=== PATIENT | female | born 1975 | race Caucasian/White ===

== ENCOUNTER 2024-09-27 17:08 | Inpatient (IN) | payer BC ==
[2024-09-27] MEDS: NITROGLYCERIN SL TABS 0.4 MG TAB SUBLINGUAL STA (18:33)
[2024-09-27] MEDS: ASPIRIN 81 MG PO STA (18:33)
[2024-09-27] MEDS: SODIUM CHLORIDE 0.9% 1,000 ML IV STA (18:34)
--- NOTE | 2024-09-27 18:36 | ED ---
General Adult HPI - General Chief complaint: Chest Pain Stated complaint: chest pain Time Seen by Provider: 09/27/24 18:01 Source: patient, RN notes reviewed Mode of arrival: ambulatory Limitations: no limitations - History of Present Illness Initial comments: 49-year-old female presents to the emergency department for evaluation of chest pain. Patient states that this started intermittently about a week ago but since last night at 8 PM and has been consistent. She notes that the pain is pressure in the left side of her chest. She notes radiation into her back. The pain in her back feels like a stabbing pain. She notes that it is worse with m ovement. She admits that the pain in her chest is better upon standing. She denies any recent fever, chills, cough, congestion. Denies any lower extremity edema. Denies shortness of breath. Denies any cardiac history. Does note a smoking history. She is not currently on any medications. - Related Data Home Medications Medication Instructions Recorded Confirmed No Known Home Medications 09/27/24 09/27/24 Allergies Allergy/AdvReac Type Severity Reaction Status Date / Time No Known Allergies Allergy Verified 09/27/24 18:16 Review of Systems ROS Statement: Those systems with pertinent positive or pertinent negative responses have been documented in the HPI. ROS Other: All systems not noted in ROS Statement are negative. Past Medical History Past Medical History: No Reported History History of Any Multi-Drug Resistant Organisms: None Reported Past Surgical History: Section Additional Past Surgical History / Comment(s): carpal tunnel, neck Past Psychological History: No Psychological Hx Reported Smoking Status: Current every day smoker Past Alcohol Use History: None Reported Past Drug Use History: None Reported General Exam Limitations: no limitations General appearance: alert, in no apparent distress Head exam: Present: atraumatic, normocephalic, normal inspection Eye exam: Present: normal appearance, PERRL, EOMI. Absent: scleral icterus, conjunctival injection, periorbital swelling ENT exam: Present: normal exam, mucous membranes moist Neck exam: Present: normal inspection. Absent: tenderness, meningismus, lymphadenopathy Respiratory exam: Present: normal lung sounds bilaterally. Absent: respiratory distress, wheezes, rales, rhonchi, stridor Cardiovascular Exam: Present: regular rate, normal rhythm, normal heart sounds. Absent: systolic murmur, diastolic murmur, rubs, gallop, clicks GI/Abdominal exam: Present: soft, normal bowel sounds. Absent: distended, tenderness, guarding, rebound, rigid Extremities exam: Present: normal inspection, full ROM, normal capillary refill. Absent: tenderness, pedal edema, joint swelling, calf tenderness Back exam: Present: tenderness Neurological exam: Present: alert, oriented X3, CN II-XII intact Psychiatric exam: Present: normal affect, normal mood Skin exam: Present: warm, dry, intact, normal color. Absent: rash Course Vital Signs 09/27/24 09/27/24 09/27/24 17:09 19:50 20:31 Temperature 97.8 F Pulse Rate 93 79 86 Respiratory 17 13 18 Rate Blood Pressure 130/94 127/97 113/81 O2 Sat by Pulse 99 97 98 Oximetry 09/27/24 09/27/24 09/27/24 21:46 22:19 22:50 Temperature Pulse Rate 56 L 70 60 Respiratory 20 18 18 Rate Blood Pressure 90/73 105/66 121/55 O2 Sat by Pulse 98 98 97 Oximetry 09/27/24 09/28/24 09/28/24 23:00 00:32 01:58 Temperature Pulse Rate 60 71 75 Respiratory 18 18 18 Rate Blood Pressure 100/60 120/71 113/60 O2 Sat by Pulse 98 97 97 Oximetry 09/28/24 09/28/24 09/28/24 03:45 05:00 09:00 Temperature 98 F 98.1 F Pulse Rate 50 L 52 L 53 L Respiratory 18 18 22 Rate Blood Pressure 96/55 99/56 93/53 O2 Sat by Pulse 99 96 95 Oximetry 09/28/24 13:48 Temperature Pulse Rate 54 L Respiratory 20 Rate Blood Pressure 104/48 O2 Sat by Pulse 95 Oximetry Medical Decision Making - Medical Decision Making Was pt. sent in by a medical professional or institution (, PA, FRAME FEEDER, urgent care, hospital, or long term...) When possible be specific @ -No Did you speak to anyone other than the patient for history (EMS, parent, family, police, friend...)? What history was obtained from this source @ -No Did you review nursing and triage notes (agree or disagree)? Why? @ -I reviewed and agree with nursing and triage notes Were old charts reviewed (outside hosp., previous admission, EMS record, old EKG, old radiological studies, urgent care reports/EKG's, long term records)? Report findings @ -No old charts were reviewed Differential Diagnosis (chest pain, altered mental status, abdominal pain women, abdominal pain men, vaginal bleeding, weakness, fever, dyspnea, syncope, headache, dizziness, GI bleed, back pain, seizure, CVA, palpatations, mental health, musculoskeletal)? @ -Differential Chest Pain: Stable Angina, Unstable Angina, STEMI, NSTEMI Aortic Dissection, Pneumothorax, Musculoskeletal, Esophageal Spasm GERD, Cholecystitis, Pancreatitis, Zoster, this is not meant to be an all-inclusive list. EKG interpreted by me (3pts min.). @ -EKG at 1717 shows sinus rhythm minimal ST depression in the anterior leads X-rays interpreted by me (1pt min.). @ -Chest x-ray shows no acute process CT interpreted by me (1pt min.). @ -CT of the thoracic aorta. No evidence of aortic dissection, no obvious aneurysm U/S interpreted by me (1pt. min.). @ -None done What testing was considered but not performed or refused? (CT, X-rays, U/S, labs)? Why? @ -None What meds were considered but not given or refused? Why? @ -None Did you discuss the management of the patient with other professionals (professionals i.e. , PA, FRAME FEEDER, lab, RT, psych nurse, social science instructor, shell mold bonding machine operator, teacher, special loan officer, showcase maker)? Give summary @ -Case was discussed with cardiology, Dr. Kumari who recommends heparin, beta-blockers, statin, trending troponins and cardiology will see the patient in the a.m. Case was discussed with Dr. Dhaliwal who is accepting of the admission Was smoking cessation discussed for >3mins.? @ -No Was critical care preformed (if so, how long)? @ -No Were there social determinants of health that impacted care today? How? (Homelessness, low income, unemployed, alcoholism, drug addiction, transportation, low edu. Level, literacy, decrease access to med. care, correction, rehab)? @ -No Was there de-escalation of care discussed even if they declined (Discuss DNR or withdrawal of care, Hospice)? DNR status @ -No What co-morbidities impacted this encounter? (DM, HTN, Smoking, COPD, CAD, Cancer, CVA, ARF, Chemo, Hep., AIDS, mental health diagnosis, sleep apnea, morbid obesity)? @ -Smoking Was patient admitted / discharged? Hospital course, mention meds given and route, prescriptions, significant lab abnormalities, going to OR and other pertinent info. @ -Admitted. Patient presented emergency department for evaluation of chest pain. Patient was administered aspirin and nitro. She does report some improvement in her symptoms with nitro. Laboratory studies obtained revealing leukocytosis at 12. Troponin was elevated at 0.71. Patient went for CT of the thoracic aorta which reveals no evidence of aortic dissection, no obvious aneurysm. Patient started on heparin drip. Case was discussed with cardiology who recommends heparin, beta-lois, statin, trending troponin. They will see the patient in the a.m. Case was discussed with Dr. Dhaliwal who is accepting of the admission. Case discussed with Dr. Palmer. Undiagnosed new problem with uncertain prognosis? @ -No Drug Therapy requiring intensive monitoring for toxicity (Heparin, Nitro, Insulin, Cardizem)? @ -Heparin Were any procedures done? @ -No Diagnosis/symptom? @ -NSTEMI Acute, or Chronic, or Acute on Chronic? @ -Notes acute Uncomplicated (without systemic symptoms) or Complicated (systemic symptoms)? @ -Complicated Side effects of treatment? @ -No Exacerbation, Progression, or Severe Exacerbation? @ -No Poses a threat to life or bodily function? How? (Chest pain, [place], NH, pneumonia, PE, COPD, DKA, ARF, appy, cholecystitis, CVA, Diverticulitis, Homicidal, Suicidal, threat to staff... and all critical care pts) @ -Yes NSTEMI - Lab Data Result diagrams: 09/28/24 02:47 09/27/24 18:26 Lab Results 09/27/24 09/27/24 09/27/24 Range/Units 18:26 18:26 18:26 WBC 12.5 H (3.8-10.6) k/uL RBC 4.56 (3.80-5.40) m/uL Hgb 14.5 (11.4-16.0) gm/dL Hct 43.5 (34.0-46.0) % MCV 95.4 (80.0-100.0) fL MCH 31.8 (25.0-35.0) pg MCHC 33.4 (31.0-37.0) g/dL RDW 12.5 (11.5-15.5) % Plt Count 290 (150-450) k/uL MPV 9.0 Neutrophils % 78 % Lymphocytes % 16 % Monocytes % 4 % Eosinophils % 1 % Basophils % 0 % Neutrophils # 9.8 H (1.3-7.7) k/uL Lymphocytes # 2.0 (1.0-4.8) k/uL Monocytes # 0.5 (0-1.0) k/uL Eosinophils # 0.2 (0-0.7) k/uL Basophils # 0.0 (0-0.2) k/uL PT 11.4 (10.0-12.5) sec INR 1.0 (<1.2) APTT 23.5 (22.0-30.0) sec D-Dimer (<0.60) mg/L FEU Sodium 137 (137-145) mmol/L Potassium 4.4 (3.5-5.1) mmol/L Chloride 104 (98-107) mmol/L Carbon Dioxide 21 L (22-30) mmol/L Anion Gap 12 mmol/L BUN 9 (7-17) mg/dL Creatinine 0.54 (0.52-1.04) mg/dL Est GFR (CKD-EPI)AfAm >90 (>60 ml/min/1.73 sqM) Est GFR (CKD-EPI)NonAf >90 (>60 ml/min/1.73 sqM) Glucose 107 H (74-99) mg/dL Calcium 9.6 (8.4-10.2) mg/dL Magnesium 1.9 (1.6-2.3) mg/dL Total Bilirubin 0.7 (0.2-1.3) mg/dL AST 29 (14-36) U/L ALT 15 (4-34) U/L Alkaline Phosphatase 113 (38-126) U/L Troponin I (0.000-0.034) ng/mL Total Protein 7.4 (6.3-8.2) g/dL Albumin 4.5 (3.5-5.0) g/dL 09/27/24 09/27/24 09/27/24 Range/Units 18:26 18:26 21:20 WBC (3.8-10.6) k/uL RBC (3.80-5.40) m/uL Hgb (11.4-16.0) gm/dL Hct (34.0-46.0) % MCV (80.0-100.0) fL MCH (25.0-35.0) pg MCHC (31.0-37.0) g/dL RDW (11.5-15.5) % Plt Count (150-450) k/uL MPV Neutrophils % % Lymphocytes % % Monocytes % % Eosinophils % % Basophils % % Neutrophils # (1.3-7.7) k/uL Lymphocytes # (1.0-4.8) k/uL Monocytes # (0-1.0) k/uL Eosinophils # (0-0.7) k/uL Basophils # (0-0.2) k/uL PT (10.0-12.5) sec INR (<1.2) APTT (22.0-30.0) sec D-Dimer 0.57 (<0.60) mg/L FEU Sodium (137-145) mmol/L Potassium (3.5-5.1) mmol/L Chloride (98-107) mmol/L Carbon Dioxide (22-30) mmol/L Anion Gap mmol/L BUN (7-17) mg/dL Creatinine (0.52-1.04) mg/dL Est GFR (CKD-EPI)AfAm (>60 ml/min/1.73 sqM) Est GFR (CKD-EPI)NonAf (>60 ml/min/1.73 sqM) Glucose (74-99) mg/dL Calcium (8.4-10.2) mg/dL Magnesium (1.6-2.3) mg/dL Total Bilirubin (0.2-1.3) mg/dL AST (14-36) U/L ALT (4-34) U/L Alkaline Phosphatase (38-126) U/L Troponin I 0.733 H* 1.610 H* (0.000-0.034) ng/mL Total Protein (6.3-8.2) g/dL Albumin (3.5-5.0) g/dL Disposition Clinical Impression: NSTEMI (non-ST elevated myocardial infarction) Disposition: ADMITTED IP TO THIS HOSP Condition: Stable Is patient prescribed a controlled substance at d/c from ED?: No
[2024-09-27 18:42] LABS: Basophils % (A) 0 %; Eosinophils # (A) 0.2 k/uL (0-0.7); Eosinophils % (A) 1 %; HCT 43.5 % (34.0-46.0); HGB 14.5 gm/dL (11.4-16.0); Lymphocytes % (A) 16 %; MCH 31.8 pg (25.0-35.0); MCHC 33.4 g/dL (31.0-37.0); MCV 95.4 fL (80.0-100.0); Monocytes # (A) 0.5 k/uL (0-1.0); Monocytes % (A) 4 %; Neutrophils # (A) 9.8 k/uL (1.3-7.7); Neutrophils % (A) 78 %; Platelet Count 290 k/uL (150-450); RBC 4.56 m/uL (3.80-5.40); RDW 12.5 % (11.5-15.5); WBC 12.5 k/uL (3.8-10.6)
--- NOTE | 2024-09-27 18:44 | XR ---
EXAMINATION TYPE: XR chest 2V DATE OF EXAM: 09/27/2024 6:38 PM COMPARISON: None. CLINICAL INDICATION: Female, 49 years old with history of Chest Pain, TECHNIQUE: Frontal and lateral views of the chest are obtained. FINDINGS: There is no focal air space opacity, pleural effusion, or pneumothorax seen. The cardiac silhouette size is within normal limits. The osseous structures are intact. IMPRESSION: No acute cardiopulmonary process. [facility], , 09/27/2024 6:41 PM
[2024-09-27 18:51] LABS: Partial Thromboplastin Time 23.5 sec (22.0-30.0); Prothrombin Time 11.4 sec (10.0-12.5)
[2024-09-27 19:28] LABS: ALT 15 U/L (4-34); African American GFR (CKD) >90 (>60 ml/min/1.73 sqM); Albumin 4.5 g/dL (3.5-5.0); Anion Gap 12 mmol/L; Blood Urea Nitrogen 9 mg/dL (7-17); Calcium 9.6 mg/dL (8.4-10.2); Carbon Dioxide 21 mmol/L (22-30); Chloride 104 mmol/L (98-107); Glucose 107 mg/dL (74-99); Non-African American GFR(CKD) >90 (>60 ml/min/1.73 sqM); Sodium 137 mmol/L (137-145); Total Bilirubin 0.7 mg/dL (0.2-1.3); Total Protein 7.4 g/dL (6.3-8.2)
[2024-09-27 19:34] LABS: AST 29 U/L (14-36); Alkaline Phosphatase 113 U/L (38-126); Magnesium 1.9 mg/dL (1.6-2.3); Potassium 4.4 mmol/L (3.5-5.1)
[2024-09-27] MEDS ORDERED: HEPARIN SODIUM 1,000 UN/ML (10ML VL) IV PRN (19:44)
[2024-09-27] MEDS ORDERED: HEPARIN SOD,PORK IN 0.45% NACL 25,000 UNIT in 0.45% NACL 1 250ML.BAG IV SCH (19:45)
[2024-09-27] MEDS: MORPHINE SULFATE 2 MG/ML SYRINGE IVP ONE ×2 (20:28→22:28)
--- NOTE | 2024-09-27 20:42 | CT ---
EXAMINATION TYPE: CT angio thor/abd pel aorta DATE OF EXAM: 09/27/2024 8:27 PM COMPARISON: None. CLINICAL INDICATION: Female, 49 years old with history of back pain, chest pain, Back and CP., TECHNIQUE: Axial imaging was performed with sagittal coronal reformats. 3D reconstruction performed o n a separate workstation. IV CONTRAST: with IV Contrast, patient injected with 100 ml mL of Isovue 370. (None if empty) CT DLP: 1667.9 mGycm, Automated exposure control for dose reduction was used. FINDINGS: CT Chest: THORACIC AORTA: There is no evidence for aneurysm. No dissection or mediastinal hematoma. Mild ath eromatous changes are seen. LUNGS: The lungs are clear and free of infiltrate or atelectasis. No pulmonary nodule or mass is det ected. No pleural effusion or CT evidence of interstitial lung disease. There are a few scattered em physematous bulla noted. MEDIASTINUM: The heart is not enlarged. No evidence for mediastinal mass or adenopathy. HILAR STRUCTURES: No evidence for mass. No hilar adenopathy is appreciated. OTHER: No significant abnormality. CONTRAST CT ABDOMEN AND PELVIS ABDOMENAL AORTA: No evidence for abdominal aortic aneurysm. No dissection. Iliac vessels are symmet cleo and patent. LIVER/GB- No significant abnormality is seen. PANCREAS- No significant abnormality is seen. SPLEEN- No significant abnormality is seen. ADRENALS- No significant abnormality is seen. KIDNEYS/BLADDER- No significant abnormality is seen. BOWEL- No Significant abnormality GENITAL ORGANS: No gross abnormality seen. LYMPH NODES- No greater than 1cm abdominal or pelvic lymph nodes areappreciated. OSSEOUS STRUCTURES- No significant abnormality is seen. OTHER- No significant abnormality is seen. IMPRESSION- No evidence for aortic aneurysm or dissection. No significant abnormality visualized to account for t he patient's symptoms. [facility], , 09/27/2024 8:40 PM
[2024-09-27] MEDS: HEPARIN SODIUM 1,000 UN/ML (10ML VL) IV ONE ×2 (20:54→21:52)
[2024-09-27] MEDS: ONDANSETRON 4 MG/2 ML VIAL IVP STA (21:48)
[2024-09-27] MEDS: ONDANSETRON 4 MG/2 ML VIAL IM STA (21:48)
[2024-09-27] MEDS: HEPARIN SOD,PORK IN 0.45% NACL 25,000 UNIT in 0.45% NACL 1 250ML.BAG IV SCH (21:52)
[2024-09-27] MEDS: ATORVASTATIN 80 MG TAB PO STA (22:30)
[2024-09-27] MEDS: SODIUM CHLORIDE 0.9% 1,000 ML IV ONE (22:44)
[2024-09-27] MEDS: NITROGLYCERIN OINT 1 INCH/GM PACKET TOPICAL STA (22:44)
[2024-09-27] MEDS ORDERED: NALOXONE 0.4 MG/ML 1 ML VIAL IV PRN (23:26)
[2024-09-27] MEDS: SODIUM CHLORIDE 0.9% 1,000 ML IV SCH (23:30)
[2024-09-27] MEDS: METOPROLOL TARTRATE 50 MG TAB PO STA (23:42)
[2024-09-28 03:41] LABS: HCT 37.8 % (34.0-46.0); HGB 12.5 gm/dL (11.4-16.0); MCH 32.2 pg (25.0-35.0); MCHC 33.1 g/dL (31.0-37.0); MCV 97.3 fL (80.0-100.0); RBC 3.89 m/uL (3.80-5.40); WBC 11.9 k/uL (3.8-10.6)
[2024-09-28 03:42] LABS: Basophils % (A) 0 %; Eosinophils # (A) 0.1 k/uL (0-0.7); Eosinophils % (A) 1 %; Lymphocytes # (A) 2.8 k/uL (1.0-4.8); Lymphocytes % (A) 23 %; Mean Platelet Volume 9.6; Monocytes # (A) 0.5 k/uL (0-1.0); Monocytes % (A) 4 %; Neutrophils # (A) 8.4 k/uL (1.3-7.7); Neutrophils % (A) 70 %; Platelet Count 268 k/uL (150-450); RDW 12.7 % (11.5-15.5)
[2024-09-28] MEDS: MORPHINE SULFATE 4 MG/ML SYRINGE IV PRN (03:47)
[2024-09-28] MEDS: HEPARIN SODIUM 1,000 UN/ML (10ML VL) IV PRN (03:49)
[2024-09-28 04:00] LABS: INR 1.1 (<1.2); Partial Thromboplastin Time 27.8 sec (22.0-30.0); Prothrombin Time 11.7 sec (10.0-12.5)
--- NOTE | 2024-09-28 07:38 | P.HPIM ---
History of Present Illness This is a pleasant 49 years old female with no significant past medical history presents because of chest pain of 5 days duration about 6-8/10 in severity felt like squeezing radiating to the shoulder blade and the back with what feels like stabbing And also radiating to the left jaw and feels her left arm is heavy. No shortness of breath no coughing She denies any specific urinary or GI symptoms. No headache or dizziness. No weakness or numbness. She smokes about 1 pack/day and she was counseled to quit and she offered vito uriel patch but she said no. She denies alcohol or illicit drugs Blood pressure is on the low side but also patient was started on metoprolol, currently 89/54 Patient is afebrile. Her troponin went up 0.7 up to 2.5 Rest of CBC, BMP LFT and INR were unremarkable except for mild leukocytosis 12.5 and 11.9 EKG showing sinus bradycardia at [address]-T changes Chest x-ray is negative for acute process CTA of the thoracic abdomen and pelvic aorta showing no aneurysm or dissection Patient currently on heparin drip and Normal Saline 100 mL/h Review of Systems Review of systems CONSTITUTIONAL: No fever, no malaise, no fatigue. HEENT: No recent visual problems or hearing problems. Denied any sore throat. CARDIOVASCULAR: No orthopnea, PND, no palpitations, no syncope. PULMONARY: No shortness of breath, no cough, no hemoptysis. GASTROINTESTINAL: No diarrhea, no nausea, no vomiting, no abdominal pain. Normoactive bowel sounds. NEUROLOGICAL: No headaches, no weakness, no numbness. HEMATOLOGICAL: Denies any bleeding or petechiae. GENITOURINARY: Denies any burning micturition, frequency, or urgency. MUSCULOSKELETAL/RHEUMATOLOGICAL: Denies any joint pain, swelling, or any muscle pain. ENDOCRINE: Denies any polyuria or polydipsia. Past Medical History Past Medical History: No Reported History History of Any Multi-Drug Resistant Organisms: None Reported Past Surgical History: Section Additional Past Surgical History / Comment(s): carpal tunnel, neck Past Psychological History: No Psychological Hx Reported Smoking Status: Current every day smoker Past Alcohol Use History: None Reported Past Drug Use History: None Reported Medications and Allergies Home Medications Medication Instructions Recorded Confirmed Type No Known Home Medications 09/27/24 09/27/24 History Allergies Allergy/AdvReac Type Severity Reaction Status Date / Time No Known Allergies Allergy Verified 09/27/24 18:16 Physical Exam Vitals: Vital Signs Temp Pulse Resp BP Pulse Ox 09/28/24 05:00 52 L 18 99/56 96 09/28/24 03:45 98 F 50 L 18 96/55 99 09/28/24 01:58 75 18 113/60 97 09/28/24 00:32 71 18 120/71 97 09/27/24 23:00 60 18 100/60 98 09/27/24 22:50 60 18 121/55 97 09/27/24 22:19 70 18 105/66 98 09/27/24 21:46 56 L 20 90/73 98 09/27/24 20:31 86 18 113/81 98 09/27/24 19:50 79 13 127/97 97 09/27/24 17:09 97.8 F 93 17 130/94 99 Intake and Output 09/27/24 09/28/24 09/28/24 22:59 06:59 14:59 Intake Total 56.421 Balance 56.421 Intake: Intake, IV Titration 56.421 Amount Heparin Sod,Pork in 0.45% 56.421 NaCl 25,000 unit In 0.45 % NaCl 1 250ml.bag @ 11.9 UNITS/KG/HR 9.986 mls/hr IV .Q24H [facility] Rx#: [id number] Other: Weight 83.915 kg GENERAL: The patient is alert and oriented x3, not in any acute distress. Well developed, well nourished. HEENT: Pupils are round and equally reacting to light. EOMI. No scleral icterus. No conjunctival pallor. Normocephalic, atraumatic. No pharyngeal erythema. No thyromegaly. CARDIOVASCULAR: S1 and S2 present. No murmurs, rubs, or gallops. PULMONARY: Chest is clear to auscultation, no wheezing , no crackles. ABDOMEN: Soft, nontender, nondistended, normoactive bowel sounds. No palpable organomegaly. MUSCULOSKELETAL: No joint swelling or deformity. EXTREMITIES: No cyanosis, clubbing, or pedal edema. NEUROLOGICAL: Gross neurological examination did not reveal any focal deficits. SKIN: No rashes. no petechiae. Results CBC & Chem 7: 09/28/24 02:47 09/27/24 18:26 Labs: Abnormal Lab Results - Last 24 Hours (Table) 09/27/24 09/27/24 09/27/24 Range/Units 18:26 18:26 18:26 WBC 12.5 H (3.8-10.6) k/uL Neutrophils # 9.8 H (1.3-7.7) k/uL APTT (22.0-30.0) sec Carbon Dioxide 21 L (22-30) mmol/L Glucose 107 H (74-99) mg/dL Troponin I 0.733 H* (0.000-0.034) ng/mL 09/27/24 09/28/24 09/28/24 Range/Units 21:20 00:30 02:00 WBC (3.8-10.6) k/uL Neutrophils # (1.3-7.7) k/uL APTT 31.8 H (22.0-30.0) sec Carbon Dioxide (22-30) mmol/L Glucose (74-99) mg/dL Troponin I 1.610 H* 2.560 H* (0.000-0.034) ng/mL 09/28/24 Range/Units 02:47 WBC 11.9 H (3.8-10.6) k/uL Neutrophils # 8.4 H (1.3-7.7) k/uL APTT (22.0-30.0) sec Carbon Dioxide (22-30) mmol/L Glucose (74-99) mg/dL Troponin I (0.000-0.034) ng/mL Assessment and Plan Assessment: Non-STEMI Nicotine dependence Mild leukocytosis secondary to above Plan: Continue with heparin drip Continue with aspirin Monitor blood pressure patient was started on metoprolol. Continue with normal saline Cardiology team consult Further recommendation based on the clinical course DVT prophylaxis: Heparin GI prophylaxis: Pepcid Prognosis is guarded
[2024-09-28] MEDS: METOPROLOL TARTRATE 25 MG TAB PO SCH (09:07)
[2024-09-28] MEDS: FAMOTIDINE 20 MG/2 ML VIAL IV SCH (09:07)
--- NOTE | 2024-09-28 12:24 | P.CRDCN ---
History of Present Illness Consult date: 09/28/24 History of present illness: The patient is a very pleasant 49-year-old female patient with no significant past medical history but significant history of smoking and significant family history of cardiovascular disease presented to the hospital complaining of chest discomfort which she has been experiencing intermittent episode of chest discomfort for the last several weeks. Lately the discomfort becomes more often and more intense which she described as a pressure in the middle of the chest with radiation to the neck with no associated symptoms of shortness of breath or sweating or dizziness or lightness or presyncope or syncope further cardiac evaluation performed including an EKG showing sinus mechanism with T wave inversion inferiorly. Troponin came to be abnormal and concerning for acute coronary event. Currently she is chest pain-free on heparin. No history of CAD or heart failure or cardiac arrhythmia. Physical examination is remarkable for regular rhythm with a clear breathing sounds bilaterally and distant heart sounds and no edema was noted in the lower extremities Assessment Acute non-ST ovation myocardial infarction History of smoking Significant family history of cardiovascular disease Plan Continue heparin IV Add aspirin and statin and beta-lois Obtain an echocardiogram with Doppler Proceed with coronary angiogram Further recommendation to follow Past Medical History Past Medical History: No Reported History History of Any Multi-Drug Resistant Organisms: None Reported Past Surgical History: Section Additional Past Surgical History / Comment(s): carpal tunnel, neck Past Psychological History: No Psychological Hx Reported Smoking Status: Current every day smoker Past Alcohol Use History: None Reported Past Drug Use History: None Reported Medications and Allergies Home Medications Medication Instructions Recorded Confirmed Type No Known Home Medications 09/27/24 09/27/24 History Allergies Allergy/AdvReac Type Severity Reaction Status Date / Time No Known Allergies Allergy Verified 09/27/24 18:16 Physical Exam Vitals: Vital Signs Temp Pulse Resp BP Pulse Ox 09/28/24 09:00 98.1 F 53 L 22 93/53 95 09/28/24 05:00 52 L 18 99/56 96 09/28/24 03:45 98 F 50 L 18 96/55 99 09/28/24 01:58 75 18 113/60 97 09/28/24 00:32 71 18 120/71 97 09/27/24 23:00 60 18 100/60 98 09/27/24 22:50 60 18 121/55 97 09/27/24 22:19 70 18 105/66 98 09/27/24 21:46 56 L 20 90/73 98 09/27/24 20:31 86 18 113/81 98 09/27/24 19:50 79 13 127/97 97 09/27/24 17:09 97.8 F 93 17 130/94 99 Intake and Output 09/27/24 09/28/24 09/28/24 22:59 06:59 14:59 Intake Total 56.421 93.118 Balance 56.421 93.118 Intake: Intake, IV Titration 56.421 93.118 Amount Heparin Sod,Pork in 0.45% 56.421 93.118 NaCl 25,000 unit In 0.45 % NaCl 1 250ml.bag @ 11.9 UNITS/KG/HR 9.986 mls/hr IV .Q24H [facility] Rx#: [id number] Other: Weight 83.915 kg Results 09/28/24 02:47 09/27/24 18:26 Cardiac Enzymes 09/27/24 09/27/24 09/27/24 Range/Units 18:26 18:26 21:20 AST 29 (14-36) U/L Troponin I 0.733 H* 1.610 H* (0.000-0.034) ng/mL 09/28/24 Range/Units 00:30 AST (14-36) U/L Troponin I 2.560 H* (0.000-0.034) ng/mL Coagulation 09/27/24 09/28/24 09/28/24 Range/Units 18:26 02:00 02:47 PT 11.4 11.7 (10.0-12.5) sec APTT 23.5 31.8 H 27.8 (22.0-30.0) sec 09/28/24 Range/Units 09:57 PT (10.0-12.5) sec APTT 35.2 H (22.0-30.0) sec CBC 09/27/24 09/28/24 Range/Units 18:26 02:47 WBC 12.5 H 11.9 H (3.8-10.6) k/uL RBC 4.56 3.89 (3.80-5.40) m/uL Hgb 14.5 12.5 (11.4-16.0) gm/dL Hct 43.5 37.8 (34.0-46.0) % Plt Count 290 268 (150-450) k/uL Comprehensive Metabolic Panel 09/27/24 Range/Units 18:26 Sodium 137 (137-145) mmol/L Potassium 4.4 (3.5-5.1) mmol/L Chloride 104 (98-107) mmol/L Carbon Dioxide 21 L (22-30) mmol/L BUN 9 (7-17) mg/dL Creatinine 0.54 (0.52-1.04) mg/dL Glucose 107 H (74-99) mg/dL Calcium 9.6 (8.4-10.2) mg/dL AST 29 (14-36) U/L ALT 15 (4-34) U/L Alkaline Phosphatase 113 (38-126) U/L Total Protein 7.4 (6.3-8.2) g/dL Albumin 4.5 (3.5-5.0) g/dL Current Medications Generic Name Dose Route Start Last Admin Trade Name Freq PRN Reason Stop Dose Admin Famotidine 20 mg 09/28/24 09:00 09/28/24 09:07 Famotidine 20 Mg/2 Ml Vial IV 20 mg Q12HR BENNETT Administration Heparin Sodium (Porcine) 0 unit 09/27/24 21:07 09/28/24 11:28 Heparin Sodium 1,000 Un/Ml (10ml Vl) IV 2,098 unit PER PROTOCOL PRN Administration Low PTT Protocol Heparin Sodium/Sodium Chloride 250 mls @ 9.986 mls/hr 09/27/24 21:15 09/28/24 11:30 25,000 unit/ Sodium Chloride IV 15.9 units/kg/hr .Q24H BENNETT 13.342 mls/hr Titration Protocol 11.9 UNITS/KG/HR Sodium Chloride 1,000 mls @ 100 mls/hr 09/27/24 23:30 09/28/24 11:36 Saline 0.9% IV 100 mls/hr .Q10H BENNETT Administration Metoprolol Tartrate 25 mg 09/28/24 09:00 09/28/24 09:07 Metoprolol Tartrate 25 Mg Tab PO Not Given BID BENNETT Morphine Sulfate 4 mg 09/27/24 23:26 09/28/24 03:47 Morphine Sulfate 4 Mg/Ml Syringe IV 4 mg Q4HR PRN Administration Severe Pain (Scale 7 to 10) Naloxone HCl 0.2 mg 09/27/24 23:26 Naloxone 0.4 Mg/Ml 1 Ml Vial IV Q2M PRN Opioid Reversal Intake and Output 09/27/24 09/28/24 09/28/24 22:59 06:59 14:59 Intake Total 56.421 93.118 Balance 56.421 93.118 Intake: Intake, IV Titration 56.421 93.118 Amount Heparin Sod,Pork in 0.45% 56.421 93.118 NaCl 25,000 unit In 0.45 % NaCl 1 250ml.bag @ 11.9 UNITS/KG/HR 9.986 mls/hr IV .Q24H [facility] Rx#: [id number] Other: Weight 83.915 kg 09/28/24 02:47 09/27/24 18:26
[2024-09-28] MEDS ORDERED: ALPRAZolam 0.25 MG TAB PO PRN (12:37)
[2024-09-28] MEDS ORDERED: NITROGLYCERIN SL TABS 0.4 MG TAB SUBLINGUAL PRN (12:37)
[2024-09-28] MEDS ORDERED: ALPRAZolam 0.5 MG TAB PO PRN (12:37)
[2024-09-28] MEDS: IV FLUID CONTINUATION 1,000 ML IV ONE (14:00)
[2024-09-28] MEDS: LIDOCAINE 1% INJ 10MG/ML (20 ML MDV) SQ ONE (14:19)
[2024-09-28] MEDS: MIDAZOLAM 2 MG/2 ML VIAL IVP ONE (14:19)
[2024-09-28] MEDS: VERAPAMIL SYRINGE (5 MG/10 ML) INTRAARTER ONE (14:21)
[2024-09-28] MEDS: HEPARIN SODIUM 1,000 UN/ML (10ML VL) IVP ONE (14:30)
[2024-09-28] MEDS: PRASUGREL 10 MG TAB PO ONE (14:30)
[2024-09-28] MEDS: NITROGLYCERIN SL TABS 0.4 MG TAB SUBLINGUAL ONE (14:30)
[2024-09-28] MEDS: PHENYLEPHRINE-0.9% NACL SYG 1,000 MCG/10 ML SYRINGE IVP ONE (14:43)
[2024-09-28] MEDS: IOPAMIDOL-370 100ML BTL INJ ONE (14:44)
[2024-09-28] MEDS ORDERED: RX INFO: IV CONTRAST WAS GIVEN 1 EACH MISC MISCELLANE PRN (14:58)
[2024-09-28] MEDS ORDERED: ATROPINE SULFATE 0.1 MG/ML 10ML SYRINGE IV PRN (14:58)
[2024-09-28] MEDS ORDERED: ZOLPIDEM 5 MG TAB PO PRN (14:58)
[2024-09-28] MEDS ORDERED: MAG HYDROX/AL HYDROX/SIMETH 30 ML CUP PO PRN (14:58)
--- NOTE | 2024-09-28 18:11 | P.PCN ---
Date of Procedure: 09/28/24 Operative Findings: CARDIAC CATHETERIZATION AND PERCUTANEOUS CORONARY INTERVENTION PERFORMING PHYSICIAN: Gokul Terrell MD, [facility] PROCEDURE PERFORMED: 1. Selective right and left coronary angiogram 2. Successful stenting of distal RCA using 3.5 x 28 mm Xience LUIS M with an excellent angiographic results and reduction of stenosis from 100% to 0% 3. Adjunctive use of IVUS and aspiration thrombectomy 4. Ultrasound-guided access of the right radial artery INDICATION: Acute non-ST elevation myocardial infarction COMPLICATION: None APPROACH: Right radial art LEVEL OF SEDATION: Moderate with the sedation time off 28 minutes PROCEDURE DESCRIPTION: After obtaining informed consent the patient was brought to the cardiac Optometry Assistant with right radial artery was cannulated using micropuncture technique under ultrasound guidance a micropuncture wire passed easily then I placed a 6 [place] 11 cm sheath at the right radial artery and give the patient 2 mg of verapamil intra-arterial and 5000's of heparin intravenous with continuous ACT monitoring. Selective right and left coronary angiogram performed using JR4 and JL 3.5 catheters. After that I decided to intervene on the RCA. Anticoagulation continued using heparin with continuous ACT monitoring and also the patient was loaded with 60 of Effient. I did engage the RCA using JR4 guiding catheter. I did cross it using a run-through wire. The wire was advanced to the PDA of RCA. I did aspiration thrombectomy with faith of the flow in the RCA at the extraction of the red thrombus. After that I did IVUS which showed a diameter around 3.5 mm with a noncalcified vessel. I did direct stenting of the lesion using 3.5 x 28 mm Xience LUIS M where the stent was positioned under fluoroscopy guidance and deployed under fluoroscopy guidance. Final angiogram showed good angiographic results with DANIELLA-3 flow and the procedure was completed with no complication. SELECTIVE CORONARY ANGIOGRAM: The right coronary artery: Large caliber vessel and a dominant vessel and appears to be occluded acutely distal Left main: Is angiographically normal The left circumflex: Has mild disease with no evidence of high-grade stenosis and gives rise into an OM which appears to be normal The left anterior descending artery: Large caliber vessel with no evidence of high-grade stenosis and gives rise into a large diagonal branch which seems to be in having mild disease only CONCLUSION: 1. Occluded RCA distally. I did perform successful PCI of the RCA as described above 2. Mild disease involving the left coronary system POSTPROCEDURE MANAGEMENT: 1. Dual antiplatelet therapy using aspirin and Effient for 12 month 2. Aggressive cholesterol control 3. Follow-up with the patient
[2024-09-28] MEDS: SODIUM CHLORIDE 0.9% 1,000 ML in EMPTY BAG 1 BAG IV SCH (20:08)
[2024-09-29] MEDS ORDERED: HEPARIN SODIUM,PORCINE 10,000 UNIT in SODIUM CHLORIDE 0.9% 1,000 ML IRRIGATION PRN (07:00)
[2024-09-29] MEDS ORDERED: HEPARIN SODIUM,PORCINE (1 ML) 2,500 UNIT in SODIUM CHLORIDE 0.9% 250 ML IRRIGATION PRN (07:00)
--- NOTE | 2024-09-29 07:01 | P.PN ---
Subjective Progress Note Date: 09/29/24 The patient is a very pleasant 49-year-old female patient with no significant past medical history but significant history of smoking and significant family history of cardiovascular disease presented to the hospital complaining of chest discomfort which she has been experiencing intermittent episode of chest discomfort for the last several weeks. Lately the discomfort becomes more often and more intense which she described as a pressure in the middle of the chest with radiation to the neck with no associated symptoms of shortness of breath or sweating or dizziness or lightness or presyncope or syncope further cardiac evaluation performed including an EKG showing sinus mechanism with T wave inver ned inferiorly. Troponin came to be abnormal and concerning for acute coronary event. Currently she is chest pain-free on heparin. No history of CAD or heart failure or cardiac arrhythmia. Physical examination is remarkable for regular rhythm with a clear breathing sounds bilaterally and distant heart sounds and no edema was noted in the lower extremities September 29, 2024 The patient was seen and evaluated this morning which she is asymptomatic and she is stable beside soft blood pressure but the pressure remains above 98 systolic. The echo still pending. She is on dual antiplatelet therapy and intermediate intensity statin. The patient would like to go home. The physical examination overall appears to be unremarkable with regular rate and rhythm and soft systolic murmur and clear breathing sounds bilaterally and no edema was noted in the lower extremities Assessment Acute non-ST ovation myocardial infarction and status post PCI of the RCA History of smoking Significant family history of cardiovascular disease Plan Continue the current medical regimen including dual antiplatelet therapy Increase the statin to be high intensity Follow-up on the echocardiogram The patient would like to go home but she was advised to stay until we have the results of the echocardiogram Objective - Vital Signs Vital signs: Vital Signs Temp 97.8 F 09/29/24 03:43 Pulse 75 09/29/24 03:43 Resp 16 09/29/24 03:43 BP 94/58 09/29/24 03:43 Pulse Ox 97 09/29/24 03:43 FiO2 Intake & Output 09/28/24 09/28/24 09/29/24 06:59 18:59 06:59 Intake Total 56.421 593.118 Balance 56.421 593.118 Weight 83.915 kg 88.9 kg Intake: IV 500 Intake, IV Titration 56.421 93.118 Amount Heparin Sod,Pork in 0.45% 56.421 93.118 NaCl 25,000 unit In 0.45 % NaCl 1 250ml.bag @ 11.9 UNITS/KG/HR 9.986 mls/hr IV .Q24H [facility] Rx#: [id number] Other: # Voids 1 - Labs CBC & Chem 7: 09/28/24 02:47 09/27/24 18:26 Labs: Abnormal Lab Results - Last 24 Hours (Table) 09/28/24 Range/Units 09:57 APTT 35.2 H (22.0-30.0) sec
[2024-09-29] MEDS: ASPIRIN 81 MG PO SCH (08:37)
[2024-09-29] MEDS: ATORVASTATIN 80 MG TAB PO SCH (08:38)
[2024-09-29] MEDS ORDERED: ATORVASTATIN 40 MG TAB PO SCH (09:00)
[2024-09-29 09:06] LABS: Basophils % (A) 0 %; Eosinophils # (A) 0.1 k/uL (0-0.7); Eosinophils % (A) 1 %; HCT 33.9 % (34.0-46.0); HGB 11.2 gm/dL (11.4-16.0); Lymphocytes % (A) 35 %; Mean Platelet Volume 9.4; Monocytes # (A) 0.4 k/uL (0-1.0); Monocytes % (A) 6 %; Neutrophils # (A) 3.2 k/uL (1.3-7.7); Neutrophils % (A) 56 %; Platelet Count 173 k/uL (150-450); RDW 12.5 % (11.5-15.5); WBC 5.8 k/uL (3.8-10.6)
[2024-09-29 09:19] LABS: African American GFR (CKD) >90 (>60 ml/min/1.73 sqM); Anion Gap 7 mmol/L; Blood Urea Nitrogen 6 mg/dL (7-17); Calcium 8.4 mg/dL (8.4-10.2); Carbon Dioxide 25 mmol/L (22-30); Chloride 108 mmol/L (98-107); Glucose 97 mg/dL (74-99); Non-African American GFR(CKD) >90 (>60 ml/min/1.73 sqM); Potassium 3.8 mmol/L (3.5-5.1); Sodium 140 mmol/L (137-145)
[2024-09-29] MEDS: PRASUGREL 10 MG TAB PO SCH (10:00)
[2024-09-29 11:56] VITALS: BMI 30.7
--- NOTE | 2024-09-29 16:20 | P.PN ---
Subjective This is a pleasant 49 years old female with no significant past medical history presents because of chest pain of 5 days duration about 6-8/10 in severity felt like squeezing radiating to the shoulder blade and the back with what feels like stabbing And also radiating to the left jaw and feels her left arm is heavy. No shortness of breath no coughing She denies any specific urinary or GI symptoms. No headache or dizziness. No weakness or numbness. She smokes about 1 pack/day and she was counseled to quit and she offered nicotine patch but she said no. She denies alcohol or illicit drugs Blood pressure is on the low side but also patient was started on metoprolol, currently 89/54 Patient is afebrile. Her troponin went up 0.7 up to 2.5 Rest of CBC, BMP LFT and INR were unremarkable except for mild leukocytosis 12.5 and 11.9 EKG showing sinus bradycardia at [address]-T changes Chest x-ray is negative for acute process CTA of the thoracic abdomen and pelvic aorta showing no aneurysm or dissection Patient currently on heparin drip and Normal Saline 100 mL/h Objective - Vital Signs Vital signs: Vital Signs Temp 98.1 F 09/29/24 12:06 Pulse 64 09/29/24 12:06 Resp 14 09/29/24 12:06 BP 123/53 09/29/24 12:06 Pulse Ox 98 09/29/24 12:06 FiO2 Intake & Output 09/28/24 09/29/24 09/29/24 18:59 06:59 18:59 Intake Total 593.118 Balance 593.118 Weight 83.915 kg 88.9 kg 88.9 kg Intake: IV 500 Intake, IV Titration 93.118 Amount Heparin Sod,Pork in 0.45% 93.118 NaCl 25,000 unit In 0.45 % NaCl 1 250ml.bag @ 11.9 UNITS/KG/HR 9.986 mls/hr IV .Q24H [facility] Rx#: [id number] Other: # Voids 1 1 # Bowel Movements 0 - Exam GENERAL: The patient is alert and oriented x3, not in any acute distress. Well developed, well nourished. HEENT: Pupils are round and equally reacting to light. EOMI. No scleral icterus. No conjunctival pallor. Normocephalic, atraumatic. No pharyngeal erythema. No thyromegaly. CARDIOVASCULAR: S1 and S2 present. No murmurs, rubs, or gallops. PULMONARY: Chest is clear to auscultation, no wheezing , no crackles. ABDOMEN: Soft, nontender, nondistended, normoactive bowel sounds. No palpable organomegaly. MUSCULOSKELETAL: No joint swelling or deformity. EXTREMITIES: No cyanosis, clubbing, or pedal edema. NEUROLOGICAL: Gross neurological examination did not reveal any focal deficits. SKIN: No rashes. no petechiae. - Labs CBC & Chem 7: 09/29/24 07:57 09/29/24 07:57 Labs: Abnormal Lab Results - Last 24 Hours (Table) 09/29/24 09/29/24 Range/Units 07:57 07:57 RBC 3.50 L (3.80-5.40) m/uL Hgb 11.2 L (11.4-16.0) gm/dL Hct 33.9 L (34.0-46.0) % Chloride 108 H (98-107) mmol/L BUN 6 L (7-17) mg/dL Assessment and Plan Assessment: Non-STEMI, S/p cardiac cath and PCI to the distal RCA Nicotine dependence Mild leukocytosis secondary to above, resolved Transient hypotension, improved Plan: C patient currently on dual antiplatelet therapy aspirin and Effient Blood pressure improved, continue on metoprolol. IV fluid discontinued Echocardiogram pending Cardiology team consult Further recommendation based on the clinical course DVT prophylaxis: Heparin GI prophylaxis: Pepcid Prognosis is guarded
--- NOTE | 2024-09-29 18:04 | CA ---
Transthoracic Echo Report Name: Mayco Hubbard Age: 49 Gender: F : 1975 Exam Date: 09/29/2024 07:33 Exam Location: [facility] Ht (in): 67 Wt (lb): 185 Ordering Physician: Luna Chu MD Attending/Referring Phys: [facility] Vernell Gooden RDCS Procedure CPT: Indications: CP for a week and elevated Trop Cardiac Hx: Technical Quality: Good Contrast 1: Total Dose (mL): Contrast 2: Total Dose (mL): MEASUREMENTS (Male / Female) Normal Values 2D ECHO LV Diastolic Diameter PLAX 5.4 cm 4.2 - 5.9 / 3.9 - 5.3 cm LV Systolic Diameter PLAX 3.6 cm IVS Diastolic Thickness 1.2 cm 0.6 - 1.0 / 0.6 - 0.9 cm LVPW Diastolic Thickness 1.2 cm 0.6 - 1.0 / 0.6 - 0.9 cm LV Relative Wall Thickness 0.4 RV Internal Dim ED PLAX 3.0 cm LA Systolic Diameter LX 4.0 cm 3.0 - 4.0 / 2.7 - 3.8 cm LV Diastolic Volume MOD BP 95.1 cm??? 67 - 155 / 56 - 104 cm??? LV Systolic Volume MOD BP 35.3 cm??? 22 - 58 / 19 - 49 cm??? LV Ejection Fraction MOD BP 62.9 % >= 55 % LV Cardiac Index MOD BP 1900.6 cm???/min???m??? LV Diastolic Volume MOD 4C 85.7 cm??? LV Systolic Volume MOD 4C 31.3 cm??? LV Ejection Fraction MOD 4C 63.6 % LV Cardiac Index MOD 4C 1731.9 cm???/min???m??? LV Diastolic Length 4C 7.9 cm LV Systolic Length 4C 5.9 cm LV Diastolic Volume MOD 2C 102.1 cm??? LV Systolic Volume MOD 2C 34.3 cm??? LV Ejection Fraction MOD 2C 66.4 % LV Cardiac Index MOD 2C 2156.2 cm???/min???m??? LV Diastolic Length 2C 8.2 cm LV Systolic Length 2C 7.1 cm LA Volume 68.1 cm??? 18 - 58 / 22 - 52 cm??? LA Volume Index 33.8 cm???/m??? 16 - 28 cm???/m??? M-MODE Aortic Root Diameter MM 2.9 cm DOPPLER AV Peak Velocity 139.1 cm/s AV Peak Gradient 7.7 mmHg MV Area PHT 4.9 cm??? MR Peak Velocity 502.9 cm/s MR Peak Gradient 101.2 mmHg Mitral E Point Velocity 128.7 cm/s Mitral A Point Velocity 99.6 cm/s Mitral E to A Ratio 1.3 MV Deceleration Time 156.2 ms TR Peak Velocity 218.7 cm/s TR Peak Gradient 19.1 mmHg Right Ventricular Systolic Press 35.0 mmHg FINDINGS Left Ventricle Left ventricular ejection fraction is estimated at 55-60 %. Mildly increased septal wall thickness. Mildly increased posterior wall thickness. Mild left ventricular dilatation. No obvious regional wall motion abnormalities. Right Ventricle Normal right ventricular size. Mild pulmonary hypertension. Right Atrium Normal right atrial size. No right atrial thrombus or mass seen. Left Atrium Mildly increased left atrial diameter. Mildly increased left atrial volume. No left atrial thrombus or mass present. Mitral Valve Structurally normal mitral valve. [id number] mitral regurgitation. Aortic Valve Trileaflet aortic valve. No aortic valve stenosis or regurgitation. Tricuspid Valve Structurally normal tricuspid valve. Mild tricuspid regurgitation. Pulmonic Valve Pulmonic valve not well visualized. Pericardium No pericardial effusion. Aorta Normal size aortic root and proximal ascending aorta. CONCLUSIONS Normal LV systolic function Moderate to severe mitral regurgitation Mild pulmonary hypertension Previewed by: Dr. Gokul Terrell MD (Electronically Signed) Final Date: 29 September 2024 18:03
--- NOTE | 2024-09-30 07:45 | P.PN ---
Subjective Progress Note Date: 09/30/24 The patient is a very pleasant 49-year-old female patient with no significant past medical history but significant history of smoking and significant family history of cardiovascular disease presented to the hospital complaining of chest discomfort which she has been experiencing intermittent episode of chest discomfort for the last several weeks. Lately the discomfort becomes more often and more intense which she described as a pressure in the middle of the chest with radiation to the neck with no associated symptoms of shortness of breath or sweating or dizziness or lightness or presyncope or syncope further cardiac evaluation performed including an EKG showing sinus mechanism with T wave inver ned inferiorly. Troponin came to be abnormal and concerning for acute coronary event. Currently she is chest pain-free on heparin. No history of CAD or heart failure or cardiac arrhythmia. Physical examination is remarkable for regular rhythm with a clear breathing sounds bilaterally and distant heart sounds and no edema was noted in the lower extremities September 29, 2024 The patient was seen and evaluated this morning which she is asymptomatic and she is stable beside soft blood pressure but the pressure remains above 98 systolic. The echo still pending. She is on dual antiplatelet therapy and intermediate intensity statin. The patient would like to go home. The physical examination overall appears to be unremarkable with regular rate and rhythm and soft systolic murmur and clear breathing sounds bilaterally and no edema was noted in the lower extremities September 30, 2024 The patient was seen and evaluated this morning which she is asymptomatic and hemodynamically stable with the echo showed normal LV systolic function with moderate to severe mitral regurgitation. The patient would like to go home. She is on dual antiplatelet therapy along with high intensity statin and she was bradycardic during the night and with that being said I am going to stop the beta-lois. The physical examination is remarkable for a systolic murmur at the apical area with a regular rate and rhythm and clear breathing sounds bilaterally and no edema was noted Assessment Acute non-ST ovation myocardial infarction and status post PCI of the RCA Preserved LV systolic function with moderate to severe mitral regurgitation likely to be ischemic History of smoking Significant family history of cardiovascular disease Plan Continue the current medical regimen including dual antiplatelet therapy DC metoprolol in the light of bradycardia The patient can be discharged home Objective - Vital Signs Vital signs: Vital Signs Temp 98.2 F 09/30/24 04:00 Pulse 56 L 09/30/24 02:00 Resp 16 09/30/24 04:00 BP 122/76 03/30/25 04:00 Pulse Ox 98 09/30/24 04:00 FiO2 Intake & Output 09/29/24 09/30/24 09/30/24 18:59 06:59 18:59 Intake Total 480 Balance 480 Weight 88.9 kg 90.5 kg Intake: Oral 480 Other: Voiding Method Toilet Toilet # Voids 3 1 # Bowel Movements 0 - Labs CBC & Chem 7: 09/29/24 07:57 09/29/24 07:57 Labs: Abnormal Lab Results - Last 24 Hours (Table) 09/29/24 09/29/24 Range/Units 07:57 07:57 RBC 3.50 L (3.80-5.40) m/uL Hgb 11.2 L (11.4-16.0) gm/dL Hct 33.9 L (34.0-46.0) % Chloride 108 H (98-107) mmol/L BUN 6 L (7-17) mg/dL
[2024-09-30 09:38] VITALS: BP 122/73; PULSE 66; RESP 14; TEMP 97.9
--- NOTE | 2024-09-30 20:06 | P.DS ---
Providers Date of admission: 09/27/24 23:49 Attending physician: Brooklyn Dhaliwal MD Consults: 09/27/24 23:26 Consult Physician Routine Consulting Provider: Pedro Kumari Consult Reason/Comments: NSTEMI Do you want consulting provider notified?: Already Contacted 09/28/24 14:58 Consult Physician Routine Consulting Provider: [facility] Consult Reason/Comments: Post Interventional Patient Do you want consulting provider notified?: Already Contacted Primary care physician: Stated None Hospital Course: Diagnoses Non-STEMI, S/p cardiac cath and PCI to the distal RCA Nicotine dependence Mild leukocytosis secondary to above, resolved Transient hypotension, improved Hospital course: This is a pleasant 49 years old female with no significant past medical history presents because of chest pain of 5 days duration Patient was diagnosed with non-STEMI on admission grinder hand evaluated the patient and she underwent cardiac cath on 09/28 she is status post PCI to the distal RCA. Postprocedure patient was borderline hypotension and that is improved but today she was slightly bradycardic therefore metoprolol was discontinued. Postprocedure patient with no chest pain or dyspnea and she is doing fine denies any other new complaint She is kept on dual antiplatelet therapy with aspirin and Effient risk-benefit explained for her as well as the importance of adherence to therapy and she verbalized understanding and acceptance Patient eager to go home denies any other new complaint Patient was cleared for discharge by grinder hand Problems and management plan were discussed with the patient and he verbalized understanding and acceptance Patient was found stable and can be discharged home in guarded prognosis however he needs follow-up as an outpatient. Patient was instructed to follow up with PCP Dr. Alvarado within one week and patient agrees Patient was instructed to follow-up with grinder hand Dr. Kunz in 2 weeks and she agrees I called the pharmacy and spoke to the pharmacist Johanna and she kindly took a note to discontinue metoprolol per discharge recommendations Physical exam Gen: patient is a AAOx3, no distress CVS: S1-S2, RRR, no murmur Lungs: B/L CTA, no wheezing Abdomen: soft, no distention, no tenderness, positive bowel sounds Extremity: no leg edema or induration Time spent more than 35 minutes Patient Condition at Discharge: Stable Plan - Discharge Summary New Discharge Prescriptions: New Aspirin 81 mg PO DAILY #30 tab Prasugrel [Effient] 10 mg PO DAILY #30 tab Atorvastatin [Lipitor] 80 mg PO DAILY #30 tab Nitroglycerin Sl Tabs [Nitrostat] 0.4 mg SUBLINGUAL Q5M PRN #10 tab PRN Reason: Chest Pain Discharge Medication List Aspirin 81 mg PO DAILY #30 tab 09/29/24 [Rx] Atorvastatin [Lipitor] 80 mg PO DAILY #30 tab 09/29/24 [Rx] Nitroglycerin Sl Tabs [Nitrostat] 0.4 mg SUBLINGUAL Q5M PRN #10 tab 09/29/24 [Rx] Prasugrel [Effient] 10 mg PO DAILY #30 tab 09/29/24 [Rx] Follow up Appointment(s)/Referral(s): Gokul Terrell MD [STAFF PHYSICIAN] - 2 Weeks (Patient to make appointment ) Verónica Alvarado DO [REFERRING] - 1-2 days (Patient to make appointment ) Patient Instructions/Handouts: Chest Pain (DC), Heart Catheterization (GEN) Activity/Diet/Wound Care/Special Instructions: heart healthy diet activity is restricted till you see your doctor Discharge Disposition: HOME SELF-CARE
== END 2024-09-30 11:38 | disposition home or self-care (01) | DRG 322 ==
LOC: EC 17:08 → 3SCARD 23:49
PROVIDERS: ADMIT Internal Medicine; ATTEND Internal Medicine
PROC: B240ZZ3 Ultrasonography of Single Coronary Artery, Intravascular (ICD-10-PCS; 2024-09-28)
PROC: 02C03ZZ Extirpation of Matter from Coronary Artery, One Artery, Percutaneous Approach (ICD-10-PCS; 2024-09-28)
PROC: 027034Z Dilation of Coronary Artery, One Artery with Drug-eluting Intraluminal Device, Percutaneous Approach (ICD-10-PCS; principal; 2024-09-28 20:50)
PROC: B2111ZZ Fluoroscopy of Multiple Coronary Arteries using Low Osmolar Contrast (ICD-10-PCS; 2024-09-28 20:50)
PROC: B2151ZZ Fluoroscopy of Left Heart using Low Osmolar Contrast (ICD-10-PCS; 2024-09-28 20:50)
DX: I21.4 Non-ST elevation (NSTEMI) myocardial infarction (principal); D72.829 Elevated white blood cell count, unspecified; I34.0 Nonrheumatic mitral (valve) insufficiency; F17.210 Nicotine dependence, cigarettes, uncomplicated; Z82.49 Family history of ischemic heart disease and other diseases of the circulatory system; I25.2 Old myocardial infarction; I95.9 Hypotension, unspecified; Z71.6 Tobacco abuse counseling
CPT/HCPCS: 36415; 71046; 71275; 74174; 80048; 80053; 83735; 84484; 85025; 85379; 85610; 85730; 92978; 93005; 93306; 93454; 96361; 96365; 96366; 96375; 96376; 99285